=== PATIENT | male | born 1970 | race Caucasian/White ===

== ENCOUNTER 2018-10-09 21:29 | Emergency (ER) | payer SELFPAY ==
[~2018-10-09] VITALS: Ht 167.6 cm; Wt 76.3 kg
[2018-10-09 21:46] VITALS: BP 140/86; PULSE 94; RESP 16; Ht 167.6 cm; Wt 76.3 kg
== END 2018-10-10 00:46 | disposition left against medical advice (07) ==
LOC: E/R 21:29
DX: Z53.21 Procedure and treatment not carried out due to patient leaving prior to being seen by health care provider (principal)

== ENCOUNTER 2018-10-13 14:19 | Emergency (ER) | payer OTHER ==
[~2018-10-13] VITALS: Ht 167.6 cm; Wt 77.5 kg
[2018-10-13 14:31] VITALS: Ht 167.6 cm; Wt 77.5 kg
[2018-10-13] MEDS ORDERED: HYDROmorphONE 0.5 MG/0.5 ML SYG IM STA (17:42)
[2018-10-13] MEDS ORDERED: KETOROLAC 15 MG INJ IM STA (17:45)
[2018-10-13 18:02] VITALS: BP 154/88; PULSE 100; RESP 18
--- NOTE | 2018-10-13 18:37 | ERD ---
ER Documentation Chief Complaint Chief Complaint sucidial ideation, sober 90days used heroin 10 hrs ago, "i want it to end" HPI Is a 48-year-old man requesting Dilaudid injection for chronic pancreatitis and alcoholism. He was triaged as having suicidal ideation and wanting to end it although patient denies having a plan to kill himself or hurt others, he states he is here for pain control and denies history of psychiatric admissions. He states he is recently homeless although he does have family members who can go and live with for the time being. Patient is refusing social work consultation and does not feel he denies any needs psychiatric evaluation. Patient denies fevers or chills, no trauma, no chest pain or shortness of breath ROS All systems reviewed and are negative except as per history of present illness. Medications Home Meds No Active Prescriptions or Reported Meds Allergies Allergies: Coded Allergies: No Known Allergy (Unverified , 10/13/18) PMhx/Soc Alcoholism History of Surgery: Yes (LAP JAYLIN, WRIST) Hx Psychiatric Problems: Yes (ADHD) Hx Alcohol Use: Yes Hx Substance Use: Yes Hx Tobacco Use: Yes Smoking Status: Current every day smoker FmHx Family History: No diabetes Physical Exam Vitals Vital Signs Date Temp Pulse Resp B/P (MAP) Pulse Ox O2 O2 Flow FiO2 Time Delivery Rate 10/13/18 100 18 154/88 98 Room Air 18:02 (110) 10/13/18 98.6 124 18 159/97 97 14:31 (117) Physical Exam Const: No acute distress, afebrile Head: Atraumatic Eyes: Normal Conjunctiva ENT: Normal External Ears, Nose and Mouth. Neck: Full range of motion. No meningismus. Resp: Clear to auscultation bilaterally Cardio: Regular rate and rhythm, no murmurs Abd: Soft, non tender, non distended. Normal bowel sounds Skin: No petechiae or rashes Back: No midline or flank tenderness Ext: No cyanosis, or edema Neur: Awake and alert x3, no focal deficits or facial asymmetry, gait normal and steady, no cerebellar signs Psych: Depressed affect Result Diagram: 10/13/18 1648 10/13/18 1648 Results 24 hrs Laboratory Tests Test 10/13/18 16:16 10/13/18 16:48 Bedside Urine pH (LAB) 6.0 Bedside Urine Protein (LAB) Negative Bedside Urine Glucose (UA) Negative Bedside Urine Ketones (LAB) Negative Bedside Urine Blood Negative Bedside Urine Nitrite (LAB) Negative Bedside Urine Leukocyte Esterase (L Negative White Blood Count 5.0 10^3/ul Red Blood Count 3.90 10^6/ul Hemoglobin 12.1 g/dl Hematocrit 36.1 % Mean Corpuscular Volume 92.6 fl Mean Corpuscular Hemoglobin 31.0 pg Mean Corpuscular Hemoglobin Concent 33.5 g/dl Red Cell Distribution Width 14.3 % Platelet Count 89 10^3/UL Mean Platelet Volume 10.6 fl Immature Granulocytes % 0.800 % Neutrophils % 66.0 % Lymphocytes % 23.4 % Monocytes % 8.4 % Eosinophils % 0.6 % Basophils % 0.8 % Nucleated Red Blood Cells % 0.0 /100WBC Immature Granulocytes # 0.040 10^3/ul Neutrophils # 3.3 10^3/ul Lymphocytes # 1.2 10^3/ul Monocytes # 0.4 10^3/ul Eosinophils # 0.0 10^3/ul Basophils # 0.0 10^3/ul Nucleated Red Blood Cells # 0.0 10^3/ul Sodium Level 142 mmol/L Potassium Level 3.4 mmol/L Chloride Level 105 mmol/L Carbon Dioxide Level 24 mmol/L Anion Gap 13 Blood Urea Nitrogen 4 mg/dl Creatinine 0.63 mg/dl Est Glomerular Filtrat Rate mL/min > 60 mL/min Glucose Level 117 mg/dl Calcium Level 8.8 mg/dl Total Bilirubin 0.6 mg/dl Direct Bilirubin 0.00 mg/dl Indirect Bilirubin 0.6 mg/dl Aspartate Amino Transf (AST/SGOT) 320 IU/L Alanine Aminotransferase (ALT/SGPT) 129 IU/L Alkaline Phosphatase 160 IU/L Total Protein 7.1 g/dl Albumin 3.9 g/dl Globulin 3.20 g/dl Albumin/Globulin Ratio 1.21 Lipase < 10 U/L Ethyl Alcohol Level 327.0 mg/dl Current Medications Medications Dose Sig/Conchita Start Time Status Last (Trade) Ordered Route PRN Stop Time Admin Dose Reason Admin 0.5 mg ONCE STAT 10/13/18 DC 10/13/18 Hydromorphone IM 17:42 10/13/18 17:54 HCl 17:45 (Dilaudid) Ketorolac 15 mg ONCE STAT 10/13/18 DC 10/13/18 Tromethamine IM 17:45 10/13/18 18:00 (Toradol) 17:46 Procedures/MDM CBC was normal, electrolytes unremarkable, liver function tests revealed mild transaminitis, lipase low, ethanol level elevated at 327, drug screen negative I administered hydromorphone 0.5 mg IM x1 for his initial complaints. He does not appear intoxicated, speaks in full sentences without difficulty, he has no slurring or acute neurologic deficits, and his gait is normal. Patient will be discharged with outpatient referrals Differential diagnoses considered, included but not limited to acute coronary syndrome, pulmonary embolism, aortic dissection, abdominal aortic aneurysm, sepsis, stroke, meningitis, encephalitis, pneumonia, appendicitis, cholecystitis, bowel obstruction, pyelonephritis, nephrolithiasis, cystitis, as well as metabolic, hematologic, and electrolyte abnormalities. As well as abscess, cellulitis, fractures, and dislocations. Patient feels much better at this time, and vital signs are normal, symptoms have improved. I did give strict instructions to return to the ED if symptoms continue or worsen, patient will otherwise follow-up with primary care physicia n. Patient understood instructions and agreed to plan. Disclaimer: Inadvertent spelling and grammatical errors are likely due to EHR/dictation software use and do not reflect on the overall quality of patient care. Also, please note that the electronic time recorded on this note does not necessarily reflect the actual time of the patient encounter. Departure Diagnosis: Primary Impression: Chronic pain syndrome Additional Impressions: Alcohol intoxication Complication of substance-induced condition: uncomplicated Qualified Codes: F10.920 - Alcohol use, unspecified with intoxication, uncomplicated Alcoholic hepatitis Ascites presence: unspecified Qualified Codes: K70.10 - Alcoholic hepatitis without ascites Ruled Out: Abdominal pain Condition: Good Patient Instructions: Alcohol Intoxication, Alcohol Abuse MADIE ENRIQUEZ MD Oct 13, 2018 18:37
== END 2018-10-13 18:05 | disposition home or self-care (01) ==
LOC: E/R 14:19
DX: F10.920 Alcohol use, unspecified with intoxication, uncomplicated (principal); K70.10 Alcoholic hepatitis without ascites; G89.4 Chronic pain syndrome; F17.210 Nicotine dependence, cigarettes, uncomplicated
CPT/HCPCS: 36415; 80053; 80307; 81003; 83690; 85025; 96372; J1170; J1885; Z7502

== ENCOUNTER 2018-10-13 19:44 | Emergency (ER) | payer OTHER ==
[~2018-10-13] VITALS: Ht 172.7 cm; Wt 77.3 kg
[2018-10-13 19:47] VITALS: Ht 172.7 cm; Wt 77.3 kg
--- NOTE | 2018-10-13 19:58 | ERD ---
ER Documentation Chief Complaint Chief Complaint SI plan to overdose and jump infront of car, c/o gen body pain. HPI Is a 48-year-old homeless alcoholic man who comes back to the ER stating now he wants to jump in front of traffic and kill himself. He was here a few hours earlier and told me he just wanted a shot of Dilaudid and had a place to go and had no thoughts of killing himself or hurting others. ROS All systems reviewed and are negative except as per history of present illness. Medications Home Meds No Active Prescriptions or Reported Meds Allergies Allergies: Coded Allergies: No Known Allergy (Unverified , 10/13/18) PMhx/Soc History of Surgery: Yes (LAP JAYLIN, WRIST) Hx Psychiatric Problems: Yes (ADHD) Hx Alcohol Use: Yes Hx Substance Use: Yes Hx Tobacco Use: Yes FmHx Family History: No diabetes Physical Exam Vitals Vital Signs Date Temp Pulse Resp B/P (MAP) Pulse Ox O2 O2 Flow FiO2 Time Delivery Rate 10/13/18 98.5 126 20 186/97 95 19:47 (126) 10/13/18 98.5 126 20 186/97 95 Room Air 19:47 (126) Physical Exam Const: Appears intoxicated, afebrile Head: Atraumatic Eyes: Normal Conjunctiva ENT: Normal External Ears, Nose and Mouth. Neck: Full range of motion. No meningismus. Resp: Clear to auscultation bilaterally Cardio: Regular rate and rhythm, no murmurs Abd: Soft, non tender, non distended. Normal bowel sounds Skin: No petechiae or rashes Back: No midline or flank tenderness Ext: No cyanosis, or edema Neur: Awake and alert x3, no focal deficits or facial asymmetry Psych: Depressed affect Results 24 hrs Laboratory Tests Test 10/13/18 20:02 Ethyl Alcohol Level 341.0 mg/dl Procedures/MDM Patient's last ethanol level just a couple hours earlier was elevated so we will have to have a repeat ethanol level prior to undergoing a meaningful psychiatric evaluation. Repeat ethanol level has been ordered results are pending I will follow-up. Patient's behavioral symptoms have stabilized while in the department. Patient is medically cleared and appropriate for psychiatric evaluation and work up. No e/o neurologic, toxic, infectious, or metabolic cause. Departure Diagnosis: Primary Impression: Alcohol intoxication Complication of substance-induced condition: uncomplicated Qualified Codes: F10.920 - Alcohol use, unspecified with intoxication, uncomplicated Condition: Stable MADIE ENRIQUEZ MD Oct 13, 2018 19:58
--- NOTE | 2018-10-14 05:08 | PSY ---
Date/Time of Note Date/Time of Note DATE: 10/14/18 TIME: 05:06 Psychiatric Subjective Eval Consent Pt consented to telemedicine: Yes Subjective Evaluation Patient location: emergency Chief Complaint: SI plan to overdose and jump infront of car, c/o gen body pain. Medical history Problems Medical Problems: (1) Abdominal pain Status: Acute (2) Alcohol intoxication Status: Acute (3) Alcoholic hepatitis Status: Acute (4) Chronic pain syndrome Status: Acute Allergies: Coded Allergies: No Known Allergy (Unverified , 10/13/18) Psychiatric Objective Eval Mental Status Examination: Laboratory Results Laboratory Tests Test 10/13/18 20:02 Ethyl Alcohol Level 341.0 mg/dl Assessment and Plan Recommendation/Plan Discharge Disposition: Psychiatric inpatient Legal Status: Voluntary Assessment Additional comments: IDENTIFYING INFORMATION: 48 year old CM patient who is currently located at the hospital and for whom psychiatric consultation was requested. SOURCES OF INFORMATION: The patient who appears to be somewhat reliable and the medical records; the nursing staff. CHIEF COMPLAINT: "I am at my witts end". HISTORY OF PRESENT ILLNESS: The patient was interviewed via telemedicine in the presence of and under the supervision of nursing staff of the hospital. The consent to conducting this interview via telemedicine was obtained by the nursing staff at the hospital. RN Nolan reports that the patient presented with SI in the context of meth, heroin and alcohol use. Is not on a 5150 hold. The patient reports having SI iwith plan to jump in front of traffic, hopelessness, depressed mood, anhedonia. The patient denies having AH, VH, delusions. The patient reports drinking 12-24 drinks per day. Last drink was today. + tremors. The patient denies having a history of alcohol withdrawal-induced seizures, delirium tremens, visual hallucinations, and denies having alcohol withdrawal- related hospitalizations. The patient reports using heroin daily. Last use was today. The patient reports using meth occasionally. The patient denies using any other substances. In terms of past psychiatric history, the patient reports having a history of past psychiatric hospitalizations. The patient reports having a history of no past suicide attempts. PAST MEDICAL HISTORY: none. CURRENT MEDICATIONS: none. ALLERGIES TO MEDICATIONS: NKDA. LABORATORY TESTS: pending, alcohol level 341. SOCIAL HISTORY: homeless, single, not employed. REVIEW OF SYSTEMS: Constitutional (e.g., fever, weight loss): negative; Eyes, Ears, Nose, Mouth, Throat: negative; Cardiovascular: negative; Respiratory: negative; Gastrointestinal: negative; Genitourinary: negative; Musculoskeletal: negative; Integumentary (skin and/or breast): negative; Neurological: negative; Psychiatric: as per HPI; Endocrine: negative; Hematologic/Lymphatic: negative; Allergic/Immunologic: negative. MENTAL STATUS EXAMINATION: General Appearance and Behavior: Calm, cooperative with the interview, pleasant with the current interviewer, makes fair eye contact, fairly groomed, no abnormal movements noted, Speech: Regular rate, regular rhythm, normal latency, normal volume, somewhat decreased amount, Flow of thought: sequential, logical, goal-directed, Content of thought: no auditory hallucinations, no visual hallucinations, no delusions, positive for suicidal ideation; no homicidal ideation, Mood: "depressed", Affect: dysthymic, dysphoric, not reactive, Attention: normal based on the interview, Insight: fair, Judgment: poor, Memory: normal based on the interview, Sensorium: alert and oriented to person, place and date. ASSESSMENT: The patient's presentation and history are consistent with the diagnosis of unspecified mood disorder, alcohol use disorder, stimulant use disorder, opiate use disorder. The patient presents with depressive symptoms in the context of medication noncompliance, psychosocial stressors and substance use. No evidence of psychosis, kaplana, hypomania on exam. PLAN: - Medication management: Would recommend starting alcohol withdrawal protocol per CIWA. Would also con wood heel flap trimmer administering thiamine, folic acid, multivitamin. Would start haloperidol 5 mg IM PRN severe agitation q4 hours. Would start diphenhydramine 50 mg IM PRN severe agitation q4 hours. Would start lorazepam 2 mg IM PRN severe agitation q4 hours Will defer to the inpatient psychiatry team for other medication changes. - Labs: Please check CBC, CMP, UDS. - Psychotherapy: Provided supportive psychotherapy and psychoeducation. - Disposition: Would recommend voluntary admission to the inpatient psychiatric unit as the patient would benefit from such an intervention so long as the patient has been cleared medically for admission to psychiatry. The patient is agreeable to being hospitalized in the inpatient psychiatric unit at this time. Would place on chiquis cide precautions. I called the emergency room physician who is taking care of the patient to discuss about the above plan but the emergency room physician is not available at this time. I left my phone number with the hospital staff requesting a callback so that the emergency room physician can reach me when they become available. MARIZA HIGGINBOTHAM MD Oct 14, 2018 05:08
[2018-10-14] MEDS ORDERED: LORAZEPAM 1 MG TAB PO ONE ×2 (08:30→09:00)
[2018-10-14] MEDS ORDERED: LORAZEPAM 2 MG INJ IM ONE (14:00)
--- NOTE | 2018-10-14 14:18 | QN ---
Documentation Comment Psychiatric Observation Note: Indication: Possible suicidal ideation Duration: Greater than 8 hours Family history: As documented in original HPI The patient was observed with serial exams over the above timeframe. The patient continued to be well-appearing, and observation continued without complication. All other needs have been met during emergency department stay. Routine psychiatric medications ordered: Not requested by telemetry medicine psychiatry Hold status: Telemetry medicine psychiatry has recommended voluntary hospitalization Placement status: Pending placement and PMR T evaluation. Patient has received anxiolysis here in the emergency room. No obvious evidence of withdrawal at this time. CODY GARCIA MD Oct 14, 2018 14:18
[2018-10-15 04:45] VITALS: BP 158/90; PULSE 88; RESP 17
== END 2018-10-15 04:45 ==
LOC: E/R 19:44
DX: F10.920 Alcohol use, unspecified with intoxication, uncomplicated (principal); F90.9 Attention-deficit hyperactivity disorder, unspecified type; Z87.891 Personal history of nicotine dependence
CPT/HCPCS: 80307; 96372; J2060; Z7502; Z7610